=== PATIENT | male | born 1995 | race American Indian/Alaskan Native ===

== ENCOUNTER 2020-03-13 10:04 | Emergency (ER) | payer SELFPAY ==
[2020-03-13 10:39] VITALS: BP 127/80
--- NOTE | 2020-03-13 10:47 | Emergency Department Report ---
ED Upper Extremity Inj HPI - General Chief Complaint: Extremity Injury, Upper Stated Complaint: LFT SIDE INJURY/LFT ARM PAIN Time Seen by Provider: 03/13/20 10:39 Source: patient Mode of arrival: Ambulatory Limitations: No Limitations - History of Present Illness Initial Comments: This is a 24-year-old male nontoxic, well nourished in appearance, no acute signs of distress presents to the ED with c/o of left wrist and elbow pain x 2 days. Patient stated had an injury to by getting hit while playing with friends. Patient denies any other trauma or injuries. Stated has some decreased ROM but denies any joint swelling, redness, or abnormal gait. Denies any fever, chills, nausea, vomiting, headache, stiff neck, chest pain or shortness of breath. Patient denies any numbness or tingling. Denies any allergies. MD Complaint: Injury to:: left, forearm, wrist -: days(s) Other Extremity Injury: Wrist: Left, Elbow: Left Place: outdoors Severity scale (0 -10): 8 Improves With: immobilization Worsens With: movement of extremity Context: direct blow Associated Symptoms: denies other symptoms. denies: weakness, numbness, neck pain, suspects foreign body, nausea/vomiting, heard/felt popping sensat - Related Data Previous Rx's Medication Instructions Recorded Last Taken Type Ibuprofen [Motrin] 600 mg PO Q8H PRN #30 tablet 08/23/19 Unknown Rx cephALEXin [Keflex] 500 mg PO Q8HR #30 cap 08/23/19 Unknown Rx Naproxen 500 mg PO Q12H PRN #12 tablet 03/13/20 Unknown Rx Allergies Allergy/AdvReac Type Severity Reaction Status Date / Time No Known Allergies Allergy Unverified 08/23/19 18:37 ED Review of Systems ROS: Stated complaint: LFT SIDE INJURY/LFT ARM PAIN Other details as noted in HPI Comment: All other systems reviewed and negative Constitutional: denies: chills, fever Eyes: denies: eye pain, eye discharge, vision change ENT: denies: ear pain, throat pain Respiratory: denies: cough, shortness of breath, wheezing Cardiovascular: denies: chest pain, palpitations Endocrine: no symptoms reported Gastrointestinal: denies: abdominal pain, nausea, diarrhea Genitourinary: denies: urgency, dysuria Musculoskeletal: denies: back pain, joint swelling, arthralgia Skin: denies: rash, lesions Neurological: denies: headache, weakness, paresthesias Psychiatric: denies: anxiety, depression Hematological/Lymphatic: denies: easy bleeding, easy bruising ED Past Medical Hx - Past Medical History Previous Medical History?: No - Social History Smoking Status: Current Every Day Smoker Substance Use Type: Marijuana - Medications Home Medications: Home Medications Medication Instructions Recorded Confirmed Last Taken Type Ibuprofen [Motrin] 600 mg PO Q8H PRN #30 tablet 08/23/19 Unknown Rx cephALEXin [Keflex] 500 mg PO Q8HR #30 cap 08/23/19 Unknown Rx Naproxen 500 mg PO Q12H PRN #12 tablet 03/13/20 Unknown Rx ED Physical Exam - General Limitations: No Limitations General appearance: alert, in no apparent distress - Head Head exam: Present: atraumatic, normocephalic - Eye Eye exam: Present: normal appearance - Neck Neck exam: Present: normal inspection, full ROM - Respiratory Respiratory exam: Absent: respiratory distress - Cardiovascular Cardiovascular Exam: Present: regular rate - Extremities Exam Extremities exam: Present: normal inspection, full ROM, tenderness, normal capillary refill. Absent: joint swelling - Expanded Upper Extremity Exam Left General: Present: normal inspection Shoulder Exam: Present: normal inspection, full ROM. Absent: tenderness, swelling, abrasion, laceration, ecchymosis, deformity, crepidus, dislocation, erythema, tenderness over AC joint Upper Arm exam: Present: normal inspection, full ROM. Absent: tenderness, swelling Elbow exam: Present: normal inspection, full ROM, tenderness. Absent: swelling, abrasion, laceration, ecchymosis, deformity, crepidus, dislocation, erythema, effusion, pain w/ pronation/supination, tenderness over radial head Forearm Wrist exam: Present: normal inspection, full ROM, tenderness. Absent: swelling, abrasion, laceration, ecchymosis, deformity, crepidus, dislocation, erythema, tenderness over anatomical snuff box, pain with axial thumb loading Hand Wrist exam: Present: normal inspection, full ROM. Absent: tenderness, swelling, abrasion, laceration, ecchymosis, deformity, crepidus, dislocation, erythema, amputation, nail avulsion, subungual hematoma Vascular: Present: normal capillary refill. Absent: vascular compromise (normal neurovascular exam) - Back Exam Back exam: Present: normal inspection, full ROM. Absent: tenderness, CVA tenderness (R), CVA tenderness (L), muscle spasm, paraspinal tenderness, vertebral tenderness, rash noted - Neurological Exam Neurological exam: Present: alert, oriented X3, normal gait - Psychiatric Psychiatric exam: Present: normal affect, normal mood - Skin Skin exam: Present: warm, dry, intact, normal color. Absent: rash ED Course Vital Signs 03/13/20 10:38 Temperature 98.1 F Pulse Rate 64 Respiratory 20 Rate Blood Pressure 127/80 O2 Sat by Pulse 100 Oximetry - Reevaluation(s) Reevaluation #1: 03/13/20 10:47 Patient is speaking in full sentences with no signs of distress noted. ED Medical Decision Making - Radiology Data Referring Physician: DANIEL REY Patient Name: JULIAN BENTON Date of : 1995 Sex: Male Report Date: 2020-03-13 Report Status: Finalized [address] [address] XRay Report Signed Patient: JULIAN BENTON MR#: [id number] : 1995 Acct:[id number] Age/Sex: 24 / M ADM Date: 03/13/20 Loc: ED Attending Dr: Ordering Physician: ADNIEL REY NP Date of Service: 03/13/20 Procedure(s): XR wrist 2V LT Accession Number(s): [id number] cc: DANIEL REY NP Fluoro Time In Minutes: LEFT WRIST 2 VIEW(S) INDICATION / CLINICAL INFORMATION: pain s/p direct blow COMPARISON: Hand and elbow radiograph 03/05/2020 FINDINGS: BONES / JOINT(S): Faint sclerosis extending transversely across the distal radius. Subtle nondisplaced acute fracture cannot excluded. Consider repeat imaging in 7-14 days for further evaluation. No significant arthritis. SOFT TISSUES: No significant abnormality. ADDITIONAL FINDINGS: None. Signer Name: Wilver Hoyt MD Signed: 03/13/2020 11:11 AM Workstation Name: [id number] Transcribed By: RH Dictated By: WILVER HOYT III Electronically Authenticated By: WILVER HOYT III Signed Date/Time: 03/13/20 1111 DD/ 1108 TD/TT: Referring Physician: DANIEL REY Patient Name: JULIAN BENTON Date of : 1995 Sex: Male Report Date: 2020-03-13 Report Status: Finalized [address] [address] XRay Report Signed Patient: JULIAN BENTON MR#: [id number] : 1995 Acct:[id number] Age/Sex: 24 / M ADM Date: 03/13/20 Loc: ED Attending Dr: Ordering Physician: DANIEL REY NP Date of Service: 03/13/20 Procedure(s): XR elbow 3+V LT Accession Number(s): [id number] cc: DANIEL REY NP Fluoro Time In Minutes: LEFT ELBOW 3 VIEW(S) INDICATION / CLINICAL INFORMATION: pain s/p direct blow COMPARISON: None available. FINDINGS: BONES / JOINT(S): No acute fracture or subluxation. No significant arthritis. SOFT TISSUES: No significant abnormality. ADDITIONAL FINDINGS: None. Signer Name: Wilver Hoyt MD Signed: 03/13/2020 11:12 AM Workstation Name: [id number] Transcribed By: RH Dictated By: WILVER HOYT III Electronically Authenticated By: WILVER HOYT III Signed Date/Time: 03/13/20 1112 DD/ 1112 TD/TT: Referring Physician: DANIEL REY Patient Name: JULIAN BENTON Date of : 1995 Sex: Male Report Date: 2020-03-13 Report Status: Finalized [address] [address] XRay Report Signed Patient: JULIAN BENTON MR#: [id number] : 1995 Acct:[id number] Age/Sex: 24 / M ADM Date: 03/13/20 Loc: ED Attending Dr: Ordering Physician: DANIEL REY NP Date of Service: 03/13/20 Procedure(s): XR hand 3+V LT Accession Number(s): [id number] cc: DANIEL REY NP Fluoro Time In Minutes: LEFT HAND 3 VIEW(S) INDICATION / CLINICAL INFORMATION: pain s/p direct blow COMPARISON: None available. FINDINGS: BONES / JOINT(S): Faint sclerosis extending transversely across the distal radius. Subtle nondi splaced acute fracture cannot excluded. Consider repeat imaging in 7-14 days for further evaluation. No significant arthritis. SOFT TISSUES: No significant abnormality. ADDITIONAL FINDINGS: None. Signer Name: Wilver Hoyt MD Signed: 03/13/2020 11:12 AM Workstation Name: [id number] Transcribed By: RH Dictated By: WILVER HOYT III Electronically Authenticated By: WILVER HOYT III Signed Date/Time: 03/13/20 1112 DD/ 1111 TD/TT: - Medical Decision Making This is a 24-year-old male that presents with left wrist and elbow strain. Patient is stable and was examined by me. Patient is notified of the xray results with no questions noted by the patient. Patient received velcro wrist splint for pain control and to repeat xrays. No joint effusion, no redness, no decreased ROM. Normal gait. Patient was instructed to Follow-up with a orthopedic doctor in 3-5 days or if symptoms worsen and continue return to emergency room as soon as possible. At time of discharge, the patient does not seem toxic or ill in appearance. No acute signs of distress noted. Patient agrees to discharge treatment plan of care. No further questions noted by the patient. Critical care attestation.: If time is entered above; I have spent that time in minutes in the direct care of this critically ill patient, excluding procedure time. ED Disposition Clinical Impression: Strain of left wrist Qualifiers: Encounter type: initial encounter Qualified Code(s): S66.912A - Strain of unspecified muscle, fascia and tendon at wrist and hand level, left hand, initial encounter Strain of left elbow Qualifiers: Encounter type: initial encounter Qualified Code(s): S46.912A - Strain of unspecified muscle, fascia and tendon at shoulder and upper arm level, left arm, initial encounter Disposition: TO HOME OR SELFCARE Is pt being admited?: No Does the pt Need Aspirin: No Condition: Stable Instructions: RICE Therapy for Routine Care of Injuries, [id number], Wrist Sprain, Adult Additional Instructions: Follow-up with a orthopedic doctor in 3-5 days or if symptoms worsen and continue return to emergency room as soon as possible. Prescriptions: Naproxen 500 mg PO Q12H PRN #12 tablet PRN Reason: Pain , Severe (7-10) Referrals: PRIMARY CAREMD [Primary Care Provider] - 3-5 Days WILVER GOOD MD [Staff Physician] - 3-5 Days Forms: Work/School Release Form(ED)
--- NOTE | 2020-03-13 11:15 | XRay Report ---
LEFT WRIST 2 VIEW(S) INDICATION / CLINICAL INFORMATION: pain s/p direct blow COMPARISON: Hand and elbow radiograph 03/05/2020 FINDINGS: BONES / JOINT(S): Faint sclerosis extending transversely across the distal radius. Subtle nondisplace d acute fracture cannot excluded. Consider repeat imaging in 7-14 days for further evaluation. No sig nificant arthritis. SOFT TISSUES: No significant abnormality. ADDITIONAL FINDINGS: None. Signer Name: Wilver Hoyt MD Signed: 03/13/2020 11:11 AM Workstation Name: [id number]
--- NOTE | 2020-03-13 11:16 | XRay Report ---
LEFT HAND 3 VIEW(S) INDICATION / CLINICAL INFORMATION: pain s/p direct blow COMPARISON: None available. FINDINGS: BONES / JOINT(S): Faint sclerosis extending transversely across the distal radius. Subtle nondisplace d acute fracture cannot excluded. Consider repeat imaging in 7-14 days for further evaluation. No sig nificant arthritis. SOFT TISSUES: No significant abnormality. ADDITIONAL FINDINGS: None. Signer Name: Wilver Hoyt MD Signed: 03/13/2020 11:12 AM Workstation Name: [id number]
--- NOTE | 2020-03-13 11:16 | XRay Report ---
LEFT ELBOW 3 VIEW(S) INDICATION / CLINICAL INFORMATION: pain s/p direct blow COMPARISON: None available. FINDINGS: BONES / JOINT(S): No acute fracture or subluxation. No significant arthritis. SOFT TISSUES: No significant abnormality. ADDITIONAL FINDINGS: None. Signer Name: Wilver Hoyt MD Signed: 03/13/2020 11:12 AM Workstation Name: [id number]
== END 2020-03-13 12:48 | disposition home or self-care (01) ==
LOC: ED 10:04
DX: S66.912A Strain of unspecified muscle, fascia and tendon at wrist and hand level, left hand, initial encounter (principal); S46.912A Strain of unspecified muscle, fascia and tendon at shoulder and upper arm level, left arm, initial encounter; F17.200 Nicotine dependence, unspecified, uncomplicated; F12.90 Cannabis use, unspecified, uncomplicated; Z79.899 Other long term (current) drug therapy; X58.XXXA Exposure to other specified factors, initial encounter; Y93.89 Activity, other specified; Y92.89 Other specified places as the place of occurrence of the external cause; Y99.8 Other external cause status

== ENCOUNTER 2021-02-17 22:31 | Emergency (ER) | payer SELFPAY ==
[2021-02-17 23:08] VITALS: BP 146/99
[2021-02-18] MEDS ORDERED: IBUPROFEN 600 MG TAB PO ONE (00:31)
--- NOTE | 2021-02-18 01:27 | Emergency Department Report ---
- General Chief Complaint: Wound/Laceration Stated Complaint: MAY NEED STICHES Source: patient Mode of arrival: Ambulatory Limitations: No Limitations - History of Present Illness Initial Comments: Patient is a 25-year-old -[place] male with no past medical history who presents to the ED with complaint of acute onset persistent severe painful left lateral supraorbital bleeding laceration after he accidentally bumped his face against the door frame causing puncture wound about 8 hours ago. Patient states that the bleeding is well controlled at this time but he has continued to have intermittent headache. Patient denies loss of consciousness, dizziness, syncope, nausea and vomiting, change in vision, neck pain, chest pain or shortness of breath. -: Sudden, hour(s) (8) Location: face (Left supraorbital area) Place: home Patient Tetanus UTD: Yes Context: accidental, sharp object use (To sharp edge of a door frame punctured him on the left supraorbital area) Associated Symptoms: pain. denies: loss of feeling/numbness, suspect foreign b davon present, unable to move injured part, weakness followed by dizziness, nausea/vomiting - Related Data Previous Rx's Medication Instructions Recorded Last Taken Type Naproxen 500 mg PO Q12H PRN #12 tablet 03/13/20 Unknown Rx Ibuprofen [Motrin 600 MG tab] 600 mg PO Q8H PRN #30 tablet 02/18/21 Unknown Rx cephALEXin [Keflex] 500 mg PO Q8HR #30 cap 02/18/21 Unknown Rx Allergies Allergy/AdvReac Type Severity Reaction Status Date / Time No Known Allergies Allergy Unverified 08/23/19 18:37 ED Review of Systems ROS: Stated complaint: MAY NEED STICHES Other details as noted in HPI Constitutional: denies: chills, fever Eyes: denies: eye pain, eye discharge, vision change ENT: other (Left supraorbital laceration wound). denies: ear pain, throat pain Respiratory: denies: cough, shortness of breath, wheezing Cardiovascular: denies: chest pain, palpitations Endocrine: no symptoms reported Gastrointestinal: denies: abdominal pain, nausea, diarrhea Genitourinary: denies: urgency, dysuria Musculoskeletal: denies: back pain, joint swelling, arthralgia Skin: other (Left supraorbital laceration wound). denies: rash, lesions Neurological: headache. denies: weakness, paresthesias Psychiatric: denies: anxiety, depression Hematological/Lymphatic: denies: easy bleeding, easy bruising ED Past Medical Hx - Past Medical History Previous Medical History?: No - Surgical History Past Surgical History?: No - Social History Smoking Status: Never Smoker Substance Use Type: None - Medications Home Medications: Home Medications Medication Instructions Recorded Confirmed Last Taken Type Naproxen 500 mg PO Q12H PRN #12 tablet 03/13/20 Unknown Rx Ibuprofen [Motrin 600 MG tab] 600 mg PO Q8H PRN #30 tablet 02/18/21 Unknown Rx cephALEXin [Keflex] 500 mg PO Q8HR #30 cap 02/18/21 Unknown Rx ED Physical Exam - General Limitations: No Limitations General appearance: alert, in no apparent distress - Head Head exam: Present: other (Left supraorbital 2 cm laceration wound) - Eye Eye exam: Present: normal appearance, PERRL, EOMI Pupils: Present: normal accommodation - ENT ENT exam: Present: normal exam, normal orophraynx, mucous membranes moist, TM's normal bilaterally, normal external ear exam - Neck Neck exam: Present: normal inspection, full ROM - Respiratory Respiratory exam: Present: normal lung sounds bilaterally. Absent: respiratory distress, wheezes, rales, chest wall tenderness, accessory muscle use, decreased breath sounds, prolonged expiratory - Cardiovascular Cardiovascular Exam: Present: regular rate, normal rhythm, normal heart sounds. Absent: systolic murmur, diastolic murmur, rubs, gallop - GI/Abdominal GI/Abdominal exam: Present: soft, normal bowel sounds. Absent: distended, tenderness, guarding, rebound, hyperactive bowel sounds, hypoactive bowel sounds, organomegaly - Extremities Exam Extremities exam: Present: normal inspection, full ROM, normal capillary refill - Back Exam Back exam: Present: normal inspection, full ROM. Absent: tenderness, CVA tenderness (L), muscle spasm, paraspinal tenderness - Neurological Exam Neurological exam: Present: alert, oriented X3, CN II-XII intact, normal gait, reflexes normal - Psychiatric Psychiatric exam: Present: normal affect, normal mood - Skin Skin exam: Present: warm, dry, intact, normal color. Absent: rash ED Course Vital Signs 02/17/21 23:02 Temperature 99.2 F Pulse Rate 66 Respiratory 16 Rate Blood Pressure 146/99 O2 Sat by Pulse 100 Oximetry - Laceration /Wound Repair Left Face Wound Location: face (Left supraorbital area) Wound Length (cm): 2 Wound's Depth, Shape: superficial Wound Explored: contaminated Irrigated w/ Saline (ccs): 100 Betadine Prep?: No Wound Debrided: extensive Wound Repaired With: Steri-strips (6), Dermabond (1) Layer Closure?: No Sterile Dressing Applied?: No Progress: Patient tolerated the procedure well. The wound was then closed with Dermabond and Steri-Strips and covered with a Band-Aid. ED Medical Decision Making - Medical Decision Making This is a 25-year-old -[place] male with no past medical history who presents to the ED with complaint of acute onset persistent severe painful left lateral supraorbital bleeding laceration after he accidentally bumped his face against the door frame causing puncture wound about 8 hours ago. Patient states that the bleeding is well controlled at this time but he has continued to have intermittent headache. In the ED, patient is alert and oriented x3 and is not in any distress. Patient was treated for pain in the ED. The left supraorbital laceration wound was cleaned extensively and closed with Dermabond and Steri- Strips. Patient tolerated the procedure well. The wound was then covered with a Band-Aid. Patient was thereafter discharged home on pain medications and antibiotics and advised to follow-up with his primary care physician in 7 to 10 days for reevaluation or return to the ED immediately if symptoms get worse. - Differential Diagnosis Facial contusion; facial laceration; facial puncture wound Critical care attestation.: If time is entered above; I have spent that time in minutes in the direct care of this critically ill patient, excluding procedure time. ED Disposition Clinical Impression: Simple laceration of face Qualifiers: Encounter type: initial encounter Qualified Code(s): S01.81XA - Laceration without foreign body of other part of head, initial encounter Contusion of face Qualifiers: Encounter type: initial encounter Qualified Code(s): S00.83XA - Contusion of other part of head, initial encounter Disposition: 01 HOME / SELF CARE / HOMELESS Is pt being admited?: No Does the pt Need Aspirin: No Condition: Stable Instructions: Facial or Scalp Contusion, [id number], Laceration Care, Adult, [id number] Additional Instructions: Take medication with food, drink plenty of fluids and follow-up with your primary care physician in 7 to 10 days for reevaluation. Return to the ED immediately if symptoms get worse. Prescriptions: cephALEXin [Keflex] 500 mg PO Q8HR #30 cap Ibuprofen [Motrin 600 MG tab] 600 mg PO Q8H PRN #30 tablet PRN Reason: Pain Referrals: [facility] [Provider Group] - 7-10 days Time of Disposition: 01:29 Print Language: HUNGARIAN
== END 2021-02-18 02:06 | disposition home or self-care (01) ==
LOC: ED 22:31
DX: S01.81XA Laceration without foreign body of other part of head, initial encounter (principal); Z79.899 Other long term (current) drug therapy; W22.8XXA Striking against or struck by other objects, initial encounter; Y93.89 Activity, other specified; Y92.89 Other specified places as the place of occurrence of the external cause; Y99.8 Other external cause status
CPT/HCPCS: 99282